=== PATIENT | female | born 1995 | race Caucasian/White ===

== ENCOUNTER 2017-08-04 09:40 | Emergency (ER) | payer OTHER ==
[~2017-08-04] VITALS: Ht 175.3 cm; Wt 79.4 kg
--- NOTE | 2017-08-04 10:07 | ED GENERAL ADULT ---
See Addendum History of Present Illness General Chief Complaint: Fever Stated Complaint: FEVER Source: patient Exam Limitations: no limitations Vital Signs & Intake/Output Vital Signs & Intake/Output Vital Signs Date Time Temp Pulse Resp B/P B/P Pulse O2 O2 Flow FiO2 Mean Ox Delivery Rate 08/04 1318 98.3 90 18 101/59 97 Room Air 08/04 1144 98.8 91 15 113/65 97 Room Air Room Air 08/04 0944 98.6 122 15 136/82 98 Room Air Room Air Allergies Coded Allergies: nut - unspecified (Severe, ANAPHYLAXIS 08/04/17) shellfish derived (Intermediate, VOMITING 08/04/17) Reconcile Medications Doxycycline Hyclate 100 MG CAPSULE 1 CAP PO BID leukocytosis Ibuprofen 800 MG TABLET 1 TAB PO TID fever Triage Note: PT TO ED FOR C/C OF R SIDED FLANK INTO MID ABD PAIN X 2 DAYS, FEVERS, CHILLS. DENIES G/U SYMPTOMS. +NAUSEA, - VOMITING, +LIGHTHEADEDNESS. SWABBED FOR STREP AND FLU YESTERDAY AT PRIMARY'S OFFICE AND BOTH CAME BACK NEGATIVE. PT AFEBRILE IN TRIAGE, TOOK TYLENOL EXTRASTRENGTH AROUND 0500. TACHYCARDIC 122. Triage Nurses Notes Reviewed? yes Onset: Abrupt Duration: day(s):, constant Timing: recent history Injury Environment: home Severity: moderate, severe : No Patient currently breastfeeds: No HPI: 21-year-old female comes into the emergency room for further evaluation of fever chills sore throat and body aches nausea pain in her abdomen. Patient reports that she started to not feel well yesterday. She went to see her primary care doctor. She was told that she had a viral illness. She's been running temperatures of 102 at home. Some mild pain to the right side of her back. She denies any vomiting but had some nausea today. Denies any abdominal surgeries. Denies any dysuria or increased frequency with urination or vaginal discharge. Nothing seems to make the symptoms better. She comes in for further evaluation. (Manoj Villalobos) Past History Travel History Traveled to [place] past 21 day No Medical History Any Pertinent Medical History? see below for history Neurological: NONE EENT: NONE Cardiovascular: NONE Respiratory: asthma Gastrointestinal: NONE Hepatic: NONE Renal: NONE Musculoskeletal: NONE Psychiatric: NONE Endocrine: NONE Blood Disorders: NONE Cancer(s): NONE INTERIOR PAINTER/Reproductive: NONE Surgical History Surgical History: non-contributory Psychosocial History What is your primary language Vincentian Tobacco Use: Never used ETOH Use: denies use Illicit Drug Use: denies illicit drug use Family History Hx Contributory? No (Manoj Villalobos) Review of Systems Review of Systems Constitutional: Reports: see HPI. EENTM: Reports: see HPI. Respiratory: Reports: see HPI. Cardiovascular: Reports: no symptoms. GI: Reports: see HPI. Genitourinary: Reports: no symptoms. Musculoskeletal: Reports: no symptoms. Skin: Reports: no symptoms. Neurological/Psychological: Reports: no symptoms. Hematologic/Endocrine: Reports: no symptoms. Immunologic/Allergic: Reports: no symptoms. All Other Systems: Reviewed and Negative (Manoj Villalobos) Physical Exam Physical Exam General Appearance: well developed/nourished, alert, awake Head: atraumatic Eyes: Bilateral: normal appearance. Ears, Nose, Throat: normal ENT inspection, hearing grossly normal, pharyngeal erythema Neck: normal inspection, supple, full range of motion, no nuchal rigidity Respiratory: normal breath sounds, no respiratory distress Cardiovascular: regular rate/rhythm, tachycardia Gastrointestinal: soft, tenderness (RLQ), no guarding/rebound tenderness Back: normal inspection, no cva tenderness Extremities: normal inspection Neurologic/Psych: awake, alert, oriented x 3, normal gait Skin: intact, normal color Core Measures ACS in differential dx? No CVA/TIA Diagnosis: No Sepsis Present: No Sepsis Focused Exam Completed? No (Manoj Villalobos) Progress Differential Diagnoses I considered the following diagnoses in my evaluation of the patient: Pyelonephritis, influenza, strep pharyngitis, appendicitis, cholecystitis, Plan of Care: Orders Procedure Date/time Status Add-on Test (ER Only) 08/04 1343 Active Add-on Test (ER Only) 08/04 1315 Active Add-on Test (ER Only) 08/04 1233 Active RAPID VIRAL INFLUENZA A 08/04 1138 Complete THROAT CULTURE W/QUICK STREP 08/04 1138 Active D-DIMER 08/04 1007 Complete CULTURE,URINE 08/04 0959 Active BLOOD CULTURE 08/04 0959 Active URINE 08/04 0959 Complete URINALYSIS 08/04 0959 Complete MONOSPOT TEST 05/03 0959 Active LYME TITRE 08/04 958 Active LIPASE 08/04 958 Complete LACTIC ACID 08/04 958 Complete COMPREHENSIVE METABOLIC PANEL 08/04 958 Complete CBC WITHOUT DIFFERENTIAL 08/04 958 Complete Laboratory Tests 08/04/17 1259: Lactic Acid Cancelled 08/04/17 1016: D-Dimer High Sensitivty < 200, Urinalysis LIGHT H, Urine Color YEL, Urine Clarity CLEAR, Urine pH 7.0, Ur Specific Davis 1.020, Urine Protein NEG, Urine Ketones NEG, Urine Nitrite NEG, Urine Bilirubin NEG, Urine Urobilinogen 1.0, Ur Leukocyte Esterase TRACE H, Ur Microscopic SEDIMENT EXAMINED, Urine RBC RARE, Ur Epithelial Cells MANY H, Urine Bacteria RARE H, Urine Hemoglobin NEG, Urine Glucose NEG, Urine Test NEGATIVE 08/04/17 1015: Anion Gap 11, Estimated GFR > 60, BUN/Creatinine Ratio 10.0, Glucose 96, Lactic Acid 1.1, Calcium 9.1, Total Bilirubin 0.7, AST 17, ALT 17, Alkaline Phosphatase 74, Total Protein 6.6, Albumin 4.0, Globulin 2.6, Albumin/Globulin Ratio 1.5, Lipase 70, CBC w Diff MAN DIFF ORDERED, RBC 4.69, MCV 83.9, MCH 27.8, MCHC 33.1, RDW 15.8 H, MPV 9.4, Gran % 82.7 H, Lymphocytes % 6.9 L, Monocytes % 10.2 H, Eosinophils % 0.1, Basophils % 0.1, Absolute Granulocytes 14.2 H, Segmented Neutrophils 78 H, Band Neutrophils 6 H, Absolute Lymphocytes 1.2, Lymphocytes 9 L, Monocytes 6, Absolute Monocytes 1.8 H, Absolute Eosinophils 0, Basophils 1, Absolute Basophils 0, Platelet Estimate ADEQUATE, Normocytic RBCs VERIFIED, Normochromic RBCs VERIFIED 08/04/17 0959: Lyme Disease Antibody Pending, Infectious Arthur Titer NEGATIVE Microbiology 08/04 1140 NASOPHARYN: Influenza Virus A & B Rapid Smear - COMP 08/04 1031 BLOOD: Blood Culture - RECD 08/04 1024 BLOOD: Blood Culture - RECD 08/04 0959 URINE ROUT: Urine Culture - RECD Diagnostic Imaging: Viewed by Me: Radiology Read, CT Scan. Discussed w/RAD: Radiology Read, CT Scan. Radiology Impression: PATIENT: MARISOL TAM PRESENT AGE: 21 PATIENT ACCOUNT NO: [id number] : 95 LOCATION: ER ORDERING PHYSICIAN: Manoj RUANO SERVICE DATE: 08/04/17 EXAM TYPE: CAT - CT ABD & PELVIS W/O IV CONTRAS EXAMINATION: CT ABDOMEN AND PELVIS WITHOUT CONTRAST CLINICAL INFORMATION: Right lower quadrant pain and tachycardia. COMPARISON: None TECHNIQUE: Multidetector volumetric imaging was performed from the superior aspect of the liver through the pubic symphysis. Sagittal and coronal reformatted images were obtained on the technologist's workstation. DLP: 390.44 mGy-cm FINDINGS: LUNG BASES: The visualized lung bases are unremarkable. LIVER, GALLBLADDER, AND BILIARY TREE: The liver is normal in size, shape, and attenuation. No focal hepatic lesion or biliary ductal dilatation is present. The gallbladder is unremarkable with no evidence of radiopaque gallstones, gallbladder wall thickening, or obvious pericholecystic inflammatory changes. PANCREAS: Unremarkable. SPLEEN: Unremarkable. ADRENAL GLANDS: Unremarkable. KIDNEYS AND URETERS: The kidneys are normal in size, shape, and attenuation. No hydronephrosis, hydroureter, or calculi seen. No perinephric stranding. BLADDER: Unremarkable. GASTROINTESTINAL TRACT: The small and large bowel are unremarkable. The appendix is unremarkable. ABDOMINAL WALL: No significant hernia is appreciated. LYMPH NODES: Normal. VASCULAR: Unremarkable. PELVIC VISCERA: Normal anteverted uterus is seen. A right ovarian cyst is probably present measuring 2.6 x 2.1 x 3.4 cm. An abnormal adnexal mass is not identified. No free intraperitoneal fluid or air is seen. OSSEOUS STRUCTURES: Unremarkable. IMPRESSION: Cause for the patient's right lower quadrant pain and tachycardia is not seen. The appendix appears normal. Right ovarian cyst may be present. DICTATED BY: Alex Samson MD DATE/TIME DICTATED:08/04/171112 [employer]PER[employer] ARE[employer]:[place] DATE/TIME TRANSCRIBED:08/04/171112 CONFIDENTIAL, DO NOT COPY WITHOUT APPROPRIATE AUTHORIZATION. <Electronically signed in Other Vendor System> SIGNED BY: Alex Samson MD 08/04/17 1128, PATIENT: MARISOL TAM PRESENT AGE: 21 PATIENT ACCOUNT NO: [id number] : 95 LOCATION: ER ORDERING PHYSICIAN: Manoj RUANO SERVICE DATE: 08/04/17 EXAM TYPE: RAD - XRY-CHEST XRAY, TWO VIEWS EXAMINATION: XR CHEST CLINICAL INFORMATION: Chest tightness with fever COMPARISON: None TECHNIQUE: 2 views of the chest were obtained. FINDINGS: No significant abnormality is noted involving the heart, lungs, mediastinum, bony thorax or soft tissues. IMPRESSION: Unremarkable examination. DICTATED BY: Alex Samson MD DATE/TIME DICTATED:08/04/171056 [employer] AREA:[place] DATE/TIME TRANSCRIBED:08/04/171056 CONFIDENTIAL, DO NOT COPY WITHOUT APPROPRIATE AUTHORIZATION. <Electronically signed in Other Vendor System> SIGNED BY: Alex Samson MD 08/04/17 1102 Initial ED EKG: none Comments: 08/04/2017 1:31:38 PM Patient clinically looks well. She feels better. She has no nuchal rigidity. She has full range of motion of her neck. She does complain of some anterior posterior neck pain but no signs of meningitis. Negative Brudzinski's sign. Lyme titer added on. No rashes. No recent travel. No signs of appendicitis or pyelonephritis. She has no complaints of vaginal discharge or concern for PID. She clinically looks well. She is nontoxic-appearing on discharge. She will follow-up with her PCP. Due to elevated white blood cell count patient was started on doxycycline. case discussed with dr vega. (Jaylon RUANO,Manoj) Differential Diagnoses I considered the following diagnoses in my evaluation of the patient: (Gary MAYEN,Luis F Theodore) Departure Departure Disposition: HOME OR SELF CARE Condition: Stable Clinical Impression Primary Impression: Viral syndrome Secondary Impressions: Leukocytosis Referrals: Vin JOHNSON,Maryana Quintanilla (PCP/Family) Additional Instructions: Take doxycycline and ibuprofen as prescribed. Follow-up with your primary care doctor. Return if any concerns worsening symptoms. Please go over all results of today's visit with your primary care doctor. Contact your primary care doctor to let them know you were here in the emergency room. There may be nonspecific findings which may not be related to your visit today here in the emergency room but may require further evaluation and chronic monitoring by your primary care doctor. If you had a laceration today the chance of foreign body always remains. You should follow-up with your primary care doctor for recheck in 3-5 days for a wound check. If you had an x-ray done there is a chance that a fracture could have been missed on initial read and you should follow-up with your primary care doctor for repeat x-rays if symptoms persist. If your blood pressure was elevated here in the emergency room please have rechecked by chris primary care doctor within the next 48. If you were prescribed a narcotic here in the emergency room or any type of controlled substances you're not allowed to drive while taking this medication or operate any type of heavy machinery. Narcotics can make you feel lightheaded dizziness nausea and can cause constipation. You may need to pickling tank operator a stool softener. Thank you for choosing [facility] emergency room. Please return to the emergency room immediately if you have any other concerns worsening of symptoms. Departure Forms: Customer Survey General Discharge Information Prescriptions: Current Visit Scripts Doxycycline Hyclate 1 CAP PO BID #20 CAP Ibuprofen 1 TAB PO TID #30 TAB (Manoj Villalobos) Departure Comments 08/04/17 I saw and personally evaluated the patient and I agree with the PAs exam. She had no photophobia, no nuchal rigidity, no Kernig's or Brudzinski sign. She is in no acute distress. She was told to return to the emergency department immediately if worse. Lyme titer was ordered. She was treated with Vibramycin. She was told to return to the emergency department immediately if worse. Blood cultures were sent. Abdomen was soft and nontender. (Lius F Vega DO) Critical Care Note Critical Care Note Critical Care Time: non-applicable (Manoj Villalobos)
[2017-08-04 10:44] LABS: ABSOLUTE BASOPHIL COUNT 0 /CUMM (0.0-0.2); ABSOLUTE EOSINOPHIL COUNT 0 /CUMM (0.0-0.7); ABSOLUTE GRANULOCYTE CT 14.2 /CUMM (1.4-6.5); ABSOLUTE LYMPH COUNT 1.2 /CUMM (1.2-3.4); ABSOLUTE MONOCYTE COUNT 1.8 /CUMM (0.10-0.60); BASOPHIL % 0.1 % (0.0-2.0); EOSINOPHIL % 0.1 % (0-5); GRANULOCYTE % 82.7 % (42.2-75.2); HEMATOCRIT 39.4 % (37-47); MEAN CORPUSCULAR HGB 27.8 PG (27.0-31.0); MEAN CORPUSCULAR HGB CONC 33.1 G/DL (33.0-37.0); MEAN CORPUSCULAR VOLUME 83.9 FL (81.0-99.0); MEAN PLATELET VOLUME 9.4 FL (7.4-10.4); PLATELET COUNT 199 /CUMM (130-400); RBC DISTRIBUTION WIDTH 15.8 % (11.5-14.5); RED BLOOD CELL CT 4.69 /CUMM (4.20-5.40); WHITE BLOOD CELL COUNT 17.2 /CUMM (4.8-10.8)
--- NOTE | 2017-08-04 11:02 | RADIOLOGY REPORT ---
EXAMINATION: XR CHEST CLINICAL INFORMATION: Chest tightness with fever COMPARISON: None TECHNIQUE: 2 views of the chest were obtained. FINDINGS: No significant abnormality is noted involving the heart, lungs, mediastinum, bony thorax or soft tissues. IMPRESSION: Unremarkable examination.
--- NOTE | 2017-08-04 11:28 | CT SCAN REPORT ---
EXAMINATION: CT ABDOMEN AND PELVIS WITHOUT CONTRAST CLINICAL INFORMATION: Right lower quadrant pain and tachycardia. COMPARISON: None TECHNIQUE: Multidetector volumetric imaging was performed from the superior aspect of the liver through the pubic symphysis. Sagittal and coronal reformatted images were obtained on the technologist's workstation. DLP: 390.44 mGy-cm FINDINGS: LUNG BASES: The visualized lung bases are unremarkable. LIVER, GALLBLADDER, AND BILIARY TREE: The liver is normal in size, shape, and attenuation. No focal hepatic lesion or biliary ductal dilatation is present. The gallbladder is unremarkable with no evidence of radiopaque gallstones, gallbladder wall thickening, or obvious pericholecystic inflammatory changes. PANCREAS: Unremarkable. SPLEEN: Unremarkable. ADRENAL GLANDS: Unremarkable. KIDNEYS AND URETERS: The kidneys are normal in size, shape, and attenuation. No hydronephrosis, hydroureter, or calculi seen. No perinephric stranding. BLADDER: Unremarkable. GASTROINTESTINAL TRACT: The small and large bowel are unremarkable. The appendix is unremarkable. ABDOMINAL WALL: No significant hernia is appreciated. LYMPH NODES: Normal. VASCULAR: Unremarkable. PELVIC VISCERA: Normal anteverted uterus is seen. A right ovarian cyst is probably present measuring 2.6 x 2.1 x 3.4 cm. An abnormal adnexal mass is not identified. No free intraperitoneal fluid or air is seen. OSSEOUS STRUCTURES: Unremarkable. IMPRESSION: Cause for the patient's right lower quadrant pain and tachycardia is not seen. The appendix appears normal. Right ovarian cyst may be present.
[2017-08-04 13:18] VITALS: BP 101/59
[2017-08-04] MEDS ORDERED: IBUPROFEN800 M1 PO (13:20)
[2017-08-04] MEDS ORDERED: DOXYCYCLINE HY100 M2 PO (13:20)
== END 2017-08-04 13:45 ==
LOC: ERH 09:40
PROVIDERS: Physician Assistant Medical
DX: B34.9 Viral infection, unspecified (principal); D72.829 Elevated white blood cell count, unspecified
CPT/HCPCS: 86618; 71046; 74176; 81001; 81025; 87040; 87086; 87804; 87804-59; 96374; 96375; J1885; J2405